=== PATIENT | male | born 2000 | race American Indian/Alaskan Native ===

== ENCOUNTER 2019-07-07 06:06 | Emergency (ER) | payer SELFPAY ==
--- NOTE | 2019-07-07 08:25 | Emergency Department Report ---
Chief Complaint: Urogenital-Male Stated Complaint: BURNING WHEN URINATING Time Seen by Provider: 07/07/19 08:08 - HPI History of Present Illness: Patient is a 18-year-old -[place] male who had unprotected sex earlier this week and his partner called and stated that he needed to come to the hospital to get treated. Patient states last night he did have some mild dysuria. Patient denies abdominal pain or testicular pain at this time. - ROS Review of Systems: All systems have been reviewed and are negative - Exam Vital Signs: Patient is alert and oriented 3 in no acute distress. Abdomen soft and nontender. MSE screening note: Focused history and physical exam performed. Due to findings the following was ordered: ED Medical Decision Making - Medical Decision Making Patient is a nonmedical emergency patient. Patient is referred to Dr. Chang's office for treatment. ED Disposition for MSE Clinical Impression: Urethritis Disposition: MED SCREENING EXAM-LEFT Is pt being admited?: No Does the pt Need Aspirin: No Condition: Stable Forms: STI Treatment and Prevention Time of Disposition: 08:25
== END 2019-07-07 08:27 | disposition left against medical advice (07) ==
LOC: ED 06:06
DX: N34.2 Other urethritis (principal)

== ENCOUNTER 2019-10-20 21:12 | Emergency (ER) | payer SELFPAY ==
--- NOTE | 2019-10-20 21:18 | Emergency Department Report ---
Abscess Boil HPI - HPI Stated Complaint: BUMP ON STOMACH Time Seen by Provider: 10/20/19 21:17 Duration: >1 Week Location: Other Severity: Mild History: No Fever, No Pain, No Purulent Drainage, No Numbness, No Foreign Body, No Previous History, No Insect Bite HPI: 19 YO COMES TO ER WITH BROKEN ABSCESS ON ABD WALL. THERE IS NO DRAINAGE. IT IS INTO THE FATTY TISSUE. PT HAS HAD NO MED CARE. NO FEVER OR CHILLS. Home Medications: Previous Rx's Medication Instructions Recorded Last Taken Type Sulfamethoxazole/Trimethoprim 1 each PO BID #14 tablet 10/20/19 Unknown Rx [Bactrim DS TAB] Allergies/Adverse Reactions: Allergies Allergy/AdvReac Type Severity Reaction Status Date / Time seafood AdvReac Anaphylaxis Uncoded 10/20/19 21:17 ED Review of Systems ROS: Stated complaint: BUMP ON STOMACH Other details as noted in HPI Comment: All other systems reviewed and negative ED Past Medical Hx - Past Medical History Hx Asthma: Yes - Surgical History Past Surgical History?: Yes - Family History Family history: no significant - Social History Smoking Status: Never Smoker Substance Use Type: None - Medications Home Medications: Home Medications Medication Instructions Recorded Confirmed Last Taken Type Sulfamethoxazole/Trimethoprim 1 each PO BID #14 tablet 10/20/19 Unknown Rx [Bactrim DS TAB] ED Abscess Boil Physical Exam - Exam General: Vital signs noted. No distress. Alert and acting appropriately. Size: 2 cm Exam: Yes Normal Neurologic Exam, Yes Normal Circulation, No Tenderness, No Fluctuance, No Surrounding Cellulites/Erythema, No Lymphangitis, No Crepitation, No Heart Murmur Exam: JEREMY SIZED AREA ON LEFT ABD. CLEAN GRANULATED WOUND BED I & D Note - I & D Note I & D Note: ALREADY OPEN Critical care attestation.: If time is entered above; I have spent that time in minutes in the direct care of this critically ill patient, excluding procedure time. ED Medical Decision Making - Medical Decision Making HEALING BROKEN ABSCESS ON ABD. DC HOME WITH BACRTRIM AND WOUND CARE PT INSTRUCTED ON HOW TO CARE FOR WOUND VSS NON ILL NON TOXIC Vital Signs 10/20/19 21:16 Temperature 98.0 F Pulse Rate 67 Respiratory 18 Rate Blood Pressure 141/59 O2 Sat by Pulse 99 Oximetry - Differential Diagnosis ABSCESS ED Disposition Clinical Impression: Abscess, Wound abscess Disposition: DC-01 TO HOME OR SELFCARE Is pt being admited?: No Does the pt Need Aspirin: No Condition: Stable Instructions: Abscess (ED) Additional Instructions: CLEAN WOUND TWICE PER DAY WITH SOAP AND WATER APPLY NEOSPORIN (OVER THE COUNTER) TO THE WOUND AND APPLY A GUAZE DRESSING TAKE MEDS ORDERED TODAY UNTIL GONE FOLLOW UP WITH PCP AFTER MEDS FINISHED REFERRAL BELOW MOTRIN OR TYLENOL FOR PAIN Prescriptions: Sulfamethoxazole/Trimethoprim [Bactrim DS TAB] 1 each PO BID #14 tablet Referrals: MERRY SWEET MD [Staff Physician] - 3-5 Days Time of Disposition: 21:18
[2019-10-20 21:24] VITALS: BP 141/59
== END 2019-10-20 21:41 | disposition home or self-care (01) ==
LOC: ED 21:12
DX: L02.211 Cutaneous abscess of abdominal wall (principal); J45.909 Unspecified asthma, uncomplicated; Z79.899 Other long term (current) drug therapy; Z91.013 Allergy to seafood
CPT/HCPCS: 99282